=== PATIENT | male | born 1975 | race Caucasian/White ===

== ENCOUNTER 2020-06-23 15:35 | Emergency (ER) | payer BC, OTHER ==
--- NOTE | 2020-06-23 16:00 | EDM.PDOC ---
ED HPI GENERAL MEDICAL PROBLEM - General Chief Complaint: Genitourinary Problem Stated Complaint: ULTRA SOUND Time Seen by Provider: 06/23/20 15:41 Source of Information: Reports: Patient History Limitations: Reports: No Limitations - History of Present Illness INITIAL COMMENTS - FREE TEXT/NARRATIVE: HISTORY AND PHYSICAL: History of present illness: Patient is a 44-year-old male who presents to the emergency room with complaints of left testicular pain and swelling. He states this started on Sunday and has progressively gotten worse. Initially he presented to [facility] but they do not have an master motorcycle technician available so it was recommended that he come to our emergency room for full evaluation. Denies any injury or trauma. Patient denies any fever, chills, headache, change in vision, syncope or near syncope. Denies any chest pain, back pain, shortness of breath or cough. Denies any abdominal pain, nausea, vomiting, diarrhea, constipation or dysuria. States he has some difficulty starting his urine stream, but once he starts to void, he has no problems. Has not noted any blood in urine or stool. Patient has been eating and drinking appropriately. Review of systems: As per history of present illness and below otherwise all systems reviewed and negative. Past medical history: As per history of present illness and as reviewed below otherwise nonc ontributory. Surgical history: As per history of present illness and as reviewed below otherwise noncontributory. Social history: See social history for further information Family history: As per history of present illness and as reviewed below otherwise noncontributory. Physical exam: General: Well developed and well nourished 44 year old male. Alert and orientated x 3. Nontoxic in appearance and in no acute distress. Vital signs are stable and have been reviewed by me. Nursing notes were reviewed. HEENT: Atraumatic, normocephalic, pupils equal and reactive bilaterally, negative for conjunctival pallor or scleral icterus, mucous membranes moist, TMs normal bilaterally, throat clear, neck supple, nontender, trachea midline. No drooling or trismus noted. No meningeal signs. No hot potato voice noted. Lungs: Clear to auscultation bilaterally. No wheezes, rales, or rhonchi. Chest nontender. Normal work of breathing, no accessory muscles used. Heart: S1S2, regular rate and rhythm without overt murmur, gallops, or rubs. No JVD. No peripheral edema Abdomen: Soft, nondistended, nontender. Normoactive bowel sounds. Negative for masses or costovertebral tenderness. Pelvis: Stable nontender. Genitourinary/Rectal: This was done with consent and rack room worker at bedside. Scrotal fullness with left sided tenderness to touch. Tenderness up into the mons-pubis area. No redness noted. No bulging into the groin region. Skin: Intact, warm, dry. No lesions or rashes noted. Hematologic: No petechiae or purpra. Mucosa appropriate color and normal nail bed color and refill. Extremities: Atraumatic, moves all extremities per self without difficulty or deficits, negative for cords or calf pain. Neurovascular unremarkable. Neuro: Awake, alert, oriented. Cranial nerves II through XII unremarkable. Cerebellum unremarkable. Motor and sensory unremarkable throughout. Exam nonfocal. Psychiatric: Mood and affect are appropriate. Normal thought process. Answering questions appropriately. Notes: *This patient was seen and evaluated during the 2019 SARS-CoV-2 novel coronavirus pandemic period. Community viral transmission is ongoing at time of this encounter and the emergency department is operating under pandemic response procedures. Ultrasound shows left varicocele and left scrotal wall thickening. Mild bilateral hydrocele. No evidence of testicular torsion. Patient has UTI, culture added. Patient refuses STD testing, stating he has no concerns for this, monogamous relationship/. I have talked with the patient about today's findings, in addition to providing specific details for plan of care. Reassessment at the time of disposition demonstrates that the patient is in no acute distress. The patient is stable for discharge, counseling was provided and we discussed in great detail signs and symptoms that would prompt them to return to the Emergency Department. Medication, follow up and supportive care measures were reviewed and discussed. Voices understanding and is agreeable to plan of care. Denies any further questions or concerns at this time. Diagnostics: CBC, CMP, UA, Testicular US Therapeutics: Rocephine Prescription: Cipro, Doxycycline, Diclofenac, Tramadol Impression: UTI Varicocele Plan: 1. You were evaluated today on an emergent basis. Your ultrasound shows good blood flow, although you have dilatation of the cord vein and a UTI. Please take the antibiotic as directed. Rest and scrotal support recommended. 2. You can alternate Tylenol and ibuprofen as needed for pain and fever management. 3. We encourage you to follow up with Urology in the next few days for re- evaluation and further care/management. 4. If your symptoms should worsen, new symptoms develop or any of the signs and symptoms we discussed should arise please return to the emergency room or call 911 (if needed). Definitive disposition and diagnosis as appropriate pending reevaluation and review of above. Left testicle Pain Score (Numeric/FACES): 7 - Related Data Allergies Allergy/AdvReac Type Severity Reaction Status Date / Time No Known Allergies Allergy Verified 06/23/20 15:51 ED ROS GENERAL - Review of Systems Review Of Systems: Comprehensive ROS is negative, except as noted in HPI. ED EXAM, RENAL/ - Physical Exam Exam: See Below (See dictation) Course - Vital Signs Last Recorded V/S: Last Vital Signs Temp 98.3 F 06/23/20 15:53 Pulse 107 H 06/23/20 15:53 Resp 15 06/23/20 15:53 BP 177/115 H 06/23/20 15:53 Pulse Ox 100 06/23/20 15:53 - Orders/Labs/Meds Orders: Active Orders 24 hr Category Date Time Status Scrotal Duplex Ltd [US] Routine Exams 06/23/20 16:47 Taken CULTURE URINE [RM] Stat Lab 06/23/20 15:49 Received TYPE AND SCREEN [BBK] Stat Lab 06/23/20 16:38 Received Labs: Laboratory Tests 06/23/20 06/23/20 06/23/20 Range/Units 15:49 16:00 16:00 WBC 12.92 H (4.0-11.0) K/uL RBC 5.19 (4.50-5.90) M/uL Hgb 16.7 (13.0-17.0) g/dL Hct 47.3 (38.0-50.0) % MCV 91.1 (80.0-98.0) fL MCH 32.2 H (27.0-32.0) pg MCHC 35.3 (31.0-37.0) g/dL RDW Std Deviation 42.1 (28.0-62.0) fl RDW Coeff of Best 13 (11.0-15.0) % Plt Count 274 (150-400) K/uL MPV 10.30 (7.40-12.00) fL Neut % (Auto) 61.9 (48.0-80.0) % Lymph % (Auto) 25.5 (16.0-40.0) % Windham % (Auto) 11.1 (0.0-15.0) % Eos % (Auto) 1.2 (0.0-7.0) % Baso % (Auto) 0.3 (0.0-1.5) % Neut # (Auto) 8.0 H (1.4-5.7) K/uL Lymph # (Auto) 3.3 H (0.6-2.4) K/uL Windham # (Auto) 1.4 H (0.0-0.8) K/uL Eos # (Auto) 0.2 (0.0-0.7) K/uL Baso # (Auto) 0.0 (0.0-0.1) K/uL Nucleated RBC % 0.0 /100WBC Nucleated RBCs # 0 K/uL Sodium 130 L (136-148) mmol/L Potassium 4.2 (3.5-5.1) mmol/L Chloride 94 L (98-107) mmol/L Carbon Dioxide 26.2 (21.0-32.0) mmol/L BUN 16 (7.0-18.0) mg/dL Creatinine 0.9 (0.8-1.3) mg/dL Est Cr Clr Drug Dosing 102.56 mL/min Estimated GFR (MDRD) > 60.0 ml/min Glucose 226 H (74-106) mg/dL Calcium 9.1 (8.5-10.1) mg/dL Total Bilirubin 0.4 (0.2-1.0) mg/dL AST 18 (15-37) IU/L ALT 34 (14-63) IU/L Alkaline Phosphatase 120 H (46-116) U/L Total Protein 8.5 H (6.4-8.2) g/dL Albumin 3.3 L (3.4-5.0) g/dL Globulin 5.2 H (2.6-4.0) g/dL Albumin/Globulin Ratio 0.6 L (0.9-1.6) Urine Color YELLOW Urine Appearance SLT CLOUDY Urine pH 5.5 (5.0-8.0) Ur Specific Isabella >= 1.030 (1.001-1.035) Urine Protein TRACE H (NEGATIVE) mg/dL Urine Glucose (UA) 500 H (NEGATIVE) mg/dL Urine Ketones TRACE H (NEGATIVE) mg/dL Urine Occult Blood SMALL H (NEGATIVE) Urine Nitrite NEGATIVE (NEGATIVE) Urine Bilirubin NEGATIVE (NEGATIVE) Urine Urobilinogen 0.2 (<2.0) EU/dL Ur Leukocyte Esterase MODERATE H (NEGATIVE) Urine RBC 2-5 (0-2/HPF) Urine WBC 50-60 (0-5/HPF) Ur Epithelial Cells RARE (NONE-FEW) Urine Bacteria 1+ H (NEGATIVE) Meds: Medications Discontinued Medications Generic Name Dose Route Start Last Admin Trade Name Freq PRN Reason Stop Dose Admin Ceftriaxone Sodium 500 mg/ 2 mls @ 2 mls/sec 06/23/20 16:53 06/23/20 17:20 Lidocaine HCl IM 06/23/20 16:54 2 mls/sec ONETIME ONE Administration Ketorolac Tromethamine 60 mg 06/23/20 16:53 06/23/20 17:21 Ketorolac 60 Mg/2 Ml Sdv IM 06/23/20 16:54 60 mg ONETIME ONE Administration Departure - Departure Time of Disposition: 17:39 Disposition: Home, Self-Care 01 Clinical Impression: UTI, Urinary tract infectious disease, Left varicocele - Discharge Information Instructions: Urinary Tract Infection, Adult, [id number] Referrals: PCP,None [Primary Care Provider] - Forms: ED Department Discharge Additional Instructions: The following information is given to patients seen in the emergency department who are being discharged to home. This information is to outline your options for follow-up care. We provide all patients seen in our emergency department with a follow-up referral. The need for follow-up, as well as the timing and circumstances, are variable depending upon the specifics of your emergency department visit. If you don't have a primary care physician on staff, we will provide you with a referral. We always advise you to contact your personal physician following an emergency department visit to inform them of the circumstance of the visit and for follow-up with them and/or the need for any referrals to a consulting specialist. The emergency department will also refer you to a specialist when appropriate. This referral assures that you have the opportunity for follow-up care with a specialist. All of these measure are taken in an effort to provide you with optimal care, which includes your follow-up. Under all circumstances we always encourage you to contact your private physician who remains a resource for coordinating your care. When calling for follow-up care, please make the office aware that this follow-up is from your recent emergency room visit. If for any reason you are refused follow-up, please contact the [facility] Emergency Department at and asked to speak to the emergency department charge nurse. [facility] - Urology (Dr Lynn) [address] [place] [id number] Thank you for choosing the [facility] emergency department in [place] for your medical needs today. It was a pleasure caring for you. Today you were seen in the emergency department for testicular pain. 1. You were evaluated today on an emergent basis. Your ultrasound shows good blood flow, although you have dilatation of the cord vein and a UTI. Please take the antibiotic as directed. Rest and scrotal support recommended. 2. You can alternate Tylenol and ibuprofen as needed for pain and fever management. 3. We encourage you to follow up with Urology in the next few days for re- evaluation and further care/management. 4. If your symptoms should worsen, new symptoms develop or any of the signs and symptoms we discussed should arise please return to the emergency room or call 911 (if needed). Sepsis Event Note (ED) - Focused Exam Vital Signs: Vital Signs Temp Pulse Resp BP Pulse Ox 06/23/20 15:53 98.3 F 107 H 15 177/115 H 100 - My Orders Last 24 Hours: My Active Orders 06/23/20 15:49 CULTURE URINE [RM] Stat 06/23/20 16:38 TYPE AND SCREEN [BBK] Stat - Assessment/Plan Last 24 Hours: My Active Orders 06/23/20 15:49 CULTURE URINE [RM] Stat 06/23/20 16:38 TYPE AND SCREEN [BBK] Stat
[2020-06-23 16:40] LABS: BLOOD UREA NITROGEN,BUN 16 mg/dL (7.0-18.0); CARBON DIOXIDE,CO2 26.2 mmol/L (21.0-32.0); CHLORIDE,CL 94 mmol/L (98-107); GLUCOSE RANDOM 226 mg/dL (74-106); POTASSIUM,K 4.2 mmol/L (3.5-5.1); SODIUM,NA 130 mmol/L (136-148)
[2020-06-23] MEDS ORDERED: cefTRIAXone 500 MG in Lidocaine 1% 2 ML IM ONE (16:53)
[2020-06-23] MEDS ORDERED: Ketorolac 60 MG/2 ML SDV IM ONE (16:53)
--- NOTE | 2020-06-23 17:33 | US ---
INDICATION: Left testicular pain COMPARISON: None TECHNIQUE: Murillo scale imaging was performed of the scrotum. In addition color Doppler and spectral Doppler analysis was performed of the testes. FINDINGS: The right testis measures approximately 6.2 x 3.0 x 3.5 cm. The left testis measures approximately 5.9 x 3.3 x 4.1 cm. There is normal homogeneous echotexture of both testes. Intact vascular flow is demonstrated to both testes with color and spectral doppler. The Epidydimal heads are unremarkable. There is mild bilateral hydrocele. There is mild enlargement of the left pampiniform plexus vessels, consistent with varicocele. Scrotal wall thickening is also noted on the left. IMPRESSION: 1. Left varicocele and left scrotal wall thickening. 2. Mild bilateral hydrocele. 3. No evidence of testicular torsion. Dictated by Emily Delgado MD @ 06/23/2020 5:31:55 PM (Electronically Signed)
--- NOTE | 2020-06-24 16:29 | US ---
EXAM DATE: 06/23/20 PATIENT'S AGE: 44 Patient: BECKA WASHINGTON Facility: [facility] Site . Site : [id number] Study: [id number]-8/5/2021 4:55:11 PM Ordering Physician: ED Provider Temporary Final Report: INDICATION: Left testicular pain COMPARISON: None TECHNIQUE: Murillo scale imaging was performed of the scrotum. In addition color Doppler and spectral Doppler analysis was performed of the testes. FINDINGS: The right testis measures approximately 6.2 x 3.0 x 3.5 cm. The left testis measures approximately 5.9 x 3.3 x 4.1 cm. There is normal homogeneous echotexture of both testes. Intact vascular flow is demonstrated to both testes with color and spectral doppler. The Epidydimal heads are unremarkable. There is mild bilateral hydrocele. There is mild enlargement of the left pampiniform plexus vessels, consistent with varicocele. Scrotal wall thickening is also noted on the left. IMPRESSION: 1. Left varicocele and left scrotal wall thickening. 2. Mild bilateral hydrocele. 3. No evidence of testicular torsion. Dictated by Emily Delgado MD @ 06/23/2020 5:31:55 PM Signed by: Emily Delgado MD @06/23/2020 5:31:55 PM (Electronic Signature) Report Signed by Proxy. SONIA
== END 2020-06-23 17:49 | disposition home or self-care (01) ==
LOC: MW.ED 15:35
DX: I86.1 Scrotal varices (principal); N39.0 Urinary tract infection, site not specified
CPT/HCPCS: 36415; 76870; 80053; 81001; 85025; 86850; 86900; 86901; 87086; 87088; 87186; 93976; 96372; 99284; J0696; J1885; 99283